=== PATIENT | male | born 1940 | race Caucasian/White ===

== ENCOUNTER → 2016-10-22 | Outpatient (CLI) | payer MEDICARE, BC | LOC: GMAL 11:48 | PROVIDERS: ATTEND Family Medicine | DX: E55.9 Vitamin D deficiency, unspecified (principal); Z12.5 Encounter for screening for malignant neoplasm of prostate | CPT/HCPCS: 82306; G0103 ==

== ENCOUNTER → 2017-04-20 | Outpatient (CLI) | payer MEDICARE, BC | LOC: GMAL 16:48 | PROVIDERS: ATTEND Family Medicine | DX: D51.3 Other dietary vitamin B12 deficiency anemia (principal); R53.83 Other fatigue; E55.9 Vitamin D deficiency, unspecified; Z79.899 Other long term (current) drug therapy ==

== ENCOUNTER → 2017-04-27 | Outpatient (CLI) | payer MEDICARE, BC | LOC: GMAL 14:49 | PROVIDERS: ATTEND Family Medicine | DX: D53.9 Nutritional anemia, unspecified (principal) ==

== ENCOUNTER → 2017-11-22 | Outpatient (CLI) | payer MEDICARE, BC | LOC: GMAM 17:04 | PROVIDERS: ATTEND Family Medicine | DX: N39.0 Urinary tract infection, site not specified (principal); Z12.5 Encounter for screening for malignant neoplasm of prostate | CPT/HCPCS: 87040; 87086; G0103 ==

== ENCOUNTER → 2017-12-27 | Outpatient (CLI) | payer MEDICARE, BC | LOC: GMAL 10:50 | PROVIDERS: ATTEND Family Medicine | DX: R97.20 Elevated prostate specific antigen [PSA] (principal) ==

== ENCOUNTER → 2018-03-01 | Outpatient (CLI) | payer MEDICARE, BC | LOC: GMAL 16:37 | PROVIDERS: ATTEND Family Medicine | DX: R30.0 Dysuria (principal) ==

== ENCOUNTER → 2018-09-27 | Outpatient (CLI) | payer MEDICARE, BC | LOC: GMAL 12:14 | PROVIDERS: ATTEND Family Medicine | DX: D51.3 Other dietary vitamin B12 deficiency anemia (principal); R53.83 Other fatigue; E55.9 Vitamin D deficiency, unspecified; R97.20 Elevated prostate specific antigen [PSA] ==

== ENCOUNTER → 2020-03-27 | Outpatient (CLI) | payer MEDICARE, BC | LOC: GMAL 15:02 | PROVIDERS: ATTEND Family Medicine | DX: D51.3 Other dietary vitamin B12 deficiency anemia (principal); E55.9 Vitamin D deficiency, unspecified; R73.9 Hyperglycemia, unspecified; R97.20 Elevated prostate specific antigen [PSA]; E78.49 Other hyperlipidemia; Z79.899 Other long term (current) drug therapy ==

== ENCOUNTER 2020-06-27 19:27 | Emergency (ER) | payer MEDICARE, BC ==
[2020-06-27] MEDS ORDERED: FLUORESCEIN SODIUM OPHTH STRIP ONE (19:46)
[2020-06-27] MEDS ORDERED: TETRACAINE HCL 0.5% OPHTH SOL 1 DROP ONE (19:46)
--- NOTE | 2020-06-27 19:57 | ED.PDOC ---
History of Present Illness - General Chief Complaint: ENT Problem Stated Complaint: right eye pain Time Seen by Provider: 06/27/20 19:30 - History of Present Illness Initial Comments: 79 yo M with hx of glacuoma was putting Alphagan eye drop in eye and developed immediate pain and irritation. Has been on medicine for over 9 years without issue. was out in the grass earlier today, but denies any known fb in eye. no change in vision, no headache. Pain is relieved when he lifts up on eyelid. Allergies/Adverse Reactions: Allergies Penicillins Allergy (Severe, Verified 03/12/15 11:23) Hives Sulfa Antibiotics Allergy (Severe, Verified 03/12/15 11:23) Rash Home Medications: Ambulatory Orders Citalopram Hydrobromide [Citalopram] 20 mg PO 06/27/20 Cyanocobalamin [Vitamin B-12] 06/27/20 Erythromycin Ophth Oint 0.5 % OPHTH 5XD 7 Days #1 tube 06/27/20 Gabapentin 100 mg PO 06/27/20 Galantamine ER [Razadyne ER] 8 mg PO 06/27/20 Levothyroxine Sodium [Synthroid] 25 mcg PO 06/27/20 Memantine HCl [Namenda Xr] 28 mg PO 06/27/20 Sertraline HCl 50 mg PO 06/27/20 Solifenacin Succinate 06/27/20 Review of Systems - Review of Systems Constitutional: Denies: chills, fever EENTM: States: eye pain. Denies: blurred vision, tearing, ear pain, throat pain Respiratory: Denies: cough, short of breath Cardiology: Denies: chest pain, palpitations Gastrointestinal/Abdominal: Denies: abdominal pain, vomiting Genitourinary: Denies: discharge, frequency Musculoskeletal: Denies: back pain, neck pain Skin: Denies: rash Neurological: Denies: headache, numbness, paresthesia, tingling, tremors, weakness Endocrine: Denies: unexplained weight gain, unexplained weight loss Hematologic/Lymphatic: Denies: easy bleeding Past Medical History (General) - Patient Medical History Hx Seizures: No Hx Stroke: No Hx Dementia: No Hx Asthma: No Hx of COPD: No Hx Cardiac Disorders: No Hx Congestive Heart Failure: No Hx Pacemaker: No Hx Hypertension: No Hx Thyroid Disease: Yes Hx Diabetes: No Hx Gastroesophageal Reflux: Yes Hx Renal Disease: No Hx Cancer: Yes - esophageal Hx of HIV: No Hx Hepatitis C: No Hx MRSA: No Surgical History: cancer surgery, cholecystectomy - Vaccination History Hx Tetanus, Diphtheria Vaccination: No Hx Influenza Vaccination: Yes Hx Pneumococcal Vaccination: Yes - Social History Hx Tobacco Use: No Hx Chewing Tobacco Use: No Hx Alcohol Use: No Hx Substance Use: No Hx Substance Use Treatment: No Hx Depression: No Feels Threatened In Home Enviroment: No Feels Threatened In a Relationship: No Hx Physical Abuse: No Hx Emotional Abuse: No Hx Suspected Abuse: No Family Medical History - Family History Mother Family History: No Known Physical Exam - Physical Exam General Appearance: Alert, Comfortable, No apparent distress Eye Exam: left normal, bilateral other - left eye with conjuncitval irritation, no fb appreciated. fluorescein testing does show a little abrasian at superior pole of cornea. 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 pain went away after flushing eye with saline. tonopen not functioning My assessment and the results of testing completed here in the ED were discussed with the patient/family. All questions were answered, and they express understanding of my assessment and the plan. They have been instructed to return if their symptoms worsen, and have been asked to follow up with their primary care physician and agriscience technology instructor to recheck today's presenting complaint. return precautions given. I have reviewed medication, benefits, alternatives and side effects. Patient decided to proceed with medication.Linda Leggett DO #[id number] Departure - Departure Clinical Impression: Conjunctivitis Qualifiers: Conjunctivitis type: acute Acute conjunctivitis type: unspecified Laterality: right Qualified Code(s): H10.31 - Unspecified acute conjunctivitis, right eye Time of Disposition: 19:55 Disposition: Discharge to Home or Self Care Departure Forms: ED Discharge - Pt. Copy, Patient Portal Self Enrollment Instructions: DI for Ear Pain-Adult, Corneal Abrasion, Conjunctivitis ([place]) Referrals: Tyler Locke III, MD [Primary Care Provider] - 1-2 Days Prescriptions: Erythromycin Ophth Oint 0.5 % OPHTH 5XD 7 Days #1 tube Home Medications: Ambulatory Orders Citalopram Hydrobromide [Citalopram] 20 mg PO 06/27/20 Cyanocobalamin [Vitamin B-12] 06/27/20 Erythromycin Ophth Oint 0.5 % OPHTH 5XD 7 Days #1 tube 06/27/20 Gabapentin 100 mg PO 06/27/20 Galantamine ER [Razadyne ER] 8 mg PO 06/27/20 Levothyroxine Sodium [Synthroid] 25 mcg PO 06/27/20 Memantine HCl [Namenda Xr] 28 mg PO 06/27/20 Sertraline HCl 50 mg PO 06/27/20 Solifenacin Succinate 06/27/20 Additional Instructions: Call your agriscience technology instructor in AM to follow up
[2020-06-27] MEDS: ERYTHROMYCIN OPHTH OINT 1 APPLIC RIGHT_EYE ONE (20:02)
[2020-06-27 20:12] VITALS: BP 124/56; TEMP 98.2; O2SAT 94
== END 2020-06-27 20:08 | disposition home or self-care (01) ==
LOC: ER 19:27
DX: H10.31 Unspecified acute conjunctivitis, right eye (principal); E07.9 Disorder of thyroid, unspecified; K21.9 Gastro-esophageal reflux disease without esophagitis; Z85.01 Personal history of malignant neoplasm of esophagus; Z88.0 Allergy status to penicillin; Z88.2 Allergy status to sulfonamides; Z79.899 Other long term (current) drug therapy